=== PATIENT | female | born 1995 | race Caucasian/White ===

== ENCOUNTER 2018-08-04 11:02 | Emergency (ER) | payer OTHER, BC | END 2018-08-04 13:24 | disposition home or self-care (01) | LOC: FTE 11:02 | DX: S62.627A Displaced fracture of middle phalanx of left little finger, initial encounter for closed fracture (principal); W21.01XA Struck by football, initial encounter; Y92.321 Football field as the place of occurrence of the external cause | CPT/HCPCS: 29130; 73140; 99283-25 ==